=== PATIENT | female | born 1985 | race Asian ===

== ENCOUNTER → 2018-01-19 | Outpatient (CLI) | payer BC ==
[~2018-01-19] MED LIST: CLR10 PO; PRENTAB26 PO
[2018-01-19 17:20] LABS: BASO % 0.2 %; BASO ABS # 0.02 K/uL (0-0.2); EOS % 0.4 %; EOS ABS # 0.04 K/uL (0-0.5); HEMATOCRIT 39.2 % (37-47); HEMOGLOBIN 13.5 g/dL (12.0-16.0); IG# 0.03 K/uL (0.00-0.02); LYMPH % 25.9 %; LYMPH ABS # 2.71 K/uL (1.2-3.4); MEAN CELL VOLUME 89.3 fL (80-100); MEAN CORPUSCULAR HEMOGLOBIN 30.8 pg (25-34); MEAN CORPUSCULAR HGB CONC 34.4 g/dl (32-36); MEAN PLATELET VOLUME 9.3 fL (7.4-10.4); MONO % 7.3 %; MONO ABS # 0.76 K/uL (0.11-0.59); NEUT % 65.9 %; NEUT ABS # 6.91 K/uL (1.4-6.5); PLATELET COUNT 307 K/uL (130-400); WHITE BLOOD COUNT 10.47 K/uL (4.8-10.8)
== END ==
LOC: C.LAB1850 16:14
PROVIDERS: ATTEND Obstetrics & Gynecology
DX: Z34.81 Encounter for supervision of other normal pregnancy, first trimester (principal)